=== PATIENT | male | born 1990 | race Caucasian/White ===

== ENCOUNTER 2020-11-21 02:42 | Emergency (ER) | payer MEDICAID ==
[~2020-11-21] VITALS: Ht 185.4 cm; Wt 81.6 kg
[2020-11-21 03:05] VITALS: BP_SYST 135
--- NOTE | 2020-11-21 03:05 | NUR ---
PT TO CHAIR 1 FOR EVALUATION
--- NOTE | 2020-11-21 03:15 | NUR ---
PT BIB FAMILY TO ED C/O USING HEROIN FOR 8 YEARS RELAPSED 2 WEEKS AGO. AND SOBER FOR 2 DAYS. VSS NO S/S OF ACUTE DISTRESS RESTING ON [employer] UP
[2020-11-21] MEDS ORDERED: NS 1000 ML IV.SOLN IV ONE (04:00)
[2020-11-21] MEDS ORDERED: PIPERACILLIN/TAZO 3.38 GM in D5W 50 ML IV ONE (04:00)
[2020-11-21] MEDS ORDERED: VANCOMYCIN HCL 1,000 MG in D5W 250 ML IV ONE (04:00)
[2020-11-21] MEDS ORDERED: VANCOMYCIN HCL 1000 MG/VIAL IV ONE (04:09)
[2020-11-21] MEDS ORDERED: PIPERACILLIN/TAZOBACTAM 3.375 GM/VIAL (ZOSYN) IV ONE (04:13)
[2020-11-21] MEDS ORDERED: ACETAMINOPHEN 500 MG TABLET PO ONE (04:15)
--- NOTE | 2020-11-21 04:21 | NUR ---
EKG 12 lead in progress
[2020-11-21 04:22] LABS: INR 1.1 (0.80-1.20); PROTHROMBIN TIME 11.3 SECS (9.5-12.5)
--- NOTE | 2020-11-21 04:24 | NUR ---
DR. LEE BEDSIDE FOR PT EVAL
[2020-11-21 04:26] LABS: LYMPHOCYTES # (AUTO) 0.6 K/uL (1.0-5.5); RED CELL DISTRIBUTION WIDTH 14.9 % (9.0-15.0)
[2020-11-21 04:31] LABS: BASOPHILS % (AUTO) 0.5 % (0.0-2.0); EOSINOPHILS # (AUTO) 0.7 K/uL (0.0-0.4); EOSINOPHILS % (AUTO) 8.6 % (0.0-4.0); HEMATOCRIT 42.4 % (36-54); HEMOGLOBIN 14.5 g/dL (14.0-18.0); LYMPHOCYTES % (AUTO) 7.6 % (20.5-51.5); MEAN CORPUSCULAR HEMOGLOBIN 28 pg (27-31); MEAN CORPUSCULAR HGB CONC 34 % (32-36); MEAN CORPUSCULAR VOLUME 82 fL (79.0-98.0); MONOCYTES # (AUTO) 0.4 K/uL (0.0-1.0); MONOCYTES % (AUTO) 4.6 % (1.7-9.3); NEUTROPHILS # (AUTO) 6.6 K/uL (1.8-7.7); NEUTROPHILS % (AUTO) 78.7 % (40.0-70.0); PLATELET COUNT (AUTO) 206 K/uL (130-430); RED BLOOD CELL COUNT(AUTO) 5.19 MIL/uL (4.2-6.2); WHITE BLOOD COUNT (AUTO) 8.4 K/uL (4.8-10.8)
[2020-11-21 04:37] LABS: POTASSIUM 3.7 mmol/L (3.5-5.1)
[2020-11-21 04:38] LABS: ALBUMIN 3.5 g/dL (3.4-4.8); CALCIUM 8.7 mg/dL (8.4-11.0); CREATININE 0.99 mg/dL (0.55-1.30); TOTAL BILIRUBIN 0.4 mg/dL (0.0-1.0)
[2020-11-21 04:47] LABS: BILIRUBIN,URINE NEGATIVE (NEGATIVE); BLOOD, URINE NEGATIVE (NEGATIVE); CLARITY/URINE CLEAR (CLEAR); COLOR,URINE YELLOW (YELLOW); GLUCOSE,URINE NEGATIVE (NEGATIVE); KETONES,URINE NEGATIVE (NEGATIVE); LEUKOCYTE ESTERASE ,URINE NEGATIVE (NEGATIVE); NITRITE, URINE NEGATIVE (NEGATIVE); PROTEIN URINE NEGATIVE (NEGATIVE); UROBILINOGEN,URINE 0.2 (0.2-1.0)
--- NOTE | 2020-11-21 04:52 | NUR ---
TEMP NOW 97.8, PT RESTING QUIETLY IN NO DISTRESS.
--- NOTE | 2020-11-21 04:52 | NUR ---
REPORT TO REYNALDO BANUELOS WHO WILL ASSUME CARE.
--- NOTE | 2020-11-21 05:42 | NUR ---
Assumed care of patient at change of shift. Introduced self to patient, positioned for comfort. Bed to low position sr up, continue to monitor. Patient resting quietly. No acute distress noted. Vital signs within normal range.
--- NOTE | 2020-11-21 06:42 | NUR ---
Patient resting quietly. No acute distress noted. Vital signs within normal range.
--- NOTE | 2020-11-21 07:30 | NUR ---
Patient resting in bed, denies any pain or SOB at this time. Respirations even and unlabored. No signs or symptoms of acute distress noted. All needs met.
[2020-11-21 07:50] LABS: BARBITURATE, URINE NEGATIVE (NEG <=200); BENZODIAZEPINE, URINE NEGATIVE (NEG <=150); COCAINE, URINE NEGATIVE (NEG <=150); METHAMPHETAMINES SCREEN,URINE POSITIVE (NEG <=500); URINE AMPHETAMINE POSITIVE (NEG <=500); URINE METHADONE NEGATIVE (NEG <=200)
[2020-11-21 07:51] LABS: CANNABINOID, URINE POSITIVE (NEG <=50); OPIATE, URINE POSITIVE (NEG <=100); PHENCYCLIDINE SCREEN,URINE NEGATIVE (NEG <=25); UR TRICYCLIC ANTIDEPRESSANTS NEGATIVE (NEG <=300); URINE OXYCODONE SCREEN NEGATIVE (NEG <=100); URINE PROPOXYPHENE SCREEN NEGATIVE (NEG <=300)
[2020-11-21 08:18] VITALS: BP_SYST 105
--- NOTE | 2020-11-21 08:19 | NUR ---
Patient given written and verbal discharge instructions and verbalizes understanding. ER Dr. Kelly discussed with patient the results and treatment provided. Patient in stable condition. ID arm band removed. IV catheter removed intact and dressing applied, no active bleeding. No Rx given. Patient educated on pain management and to follow up with PMD. Pain Scale 0/10. Opportunity for questions provided and answered. Medication side effect fact sheet provided.
== END 2020-11-21 08:16 | disposition home or self-care (01) ==
LOC: SED 02:42 → EDBD 02:42 → SED 08:16
DX: R50.9 Fever, unspecified (principal); F19.10 Other psychoactive substance abuse, uncomplicated; Z20.822 Contact with and (suspected) exposure to COVID-19
CPT/HCPCS: 36415; 71045; 80053; 80307; 81003; 83605; 84484; 85025; 85610; 87040; 87086; 87426; 93005; 96365; 96366; 96368; 99285; J2543; J3370

== ENCOUNTER 2021-02-13 11:04 | Emergency (ER) | payer MEDICAID, SELFPAY ==
[~2021-02-13] VITALS: Ht 185.4 cm; Wt 86.2 kg
[2021-02-13 11:04] VITALS: BP_SYST 138
--- NOTE | 2021-02-13 11:04 | NUR ---
BROUGHT BACK TO HALLWAY BED AND TRIAGED. REPORT GIVEN TO STACY
[2021-02-13 11:10] VITALS: BP_SYST 138
--- NOTE | 2021-02-13 11:10 | NUR ---
PT arrives from home w/ c/o of SOB after running out of his albuterol inhaler. Pt has a hx of asthma.
[2021-02-13] MEDS ORDERED: ALBUTEROL SULFATE 0.083% 2.5 MG/3 ML VIAL.NEB INH ONE ×2 (11:15→11:18)
[2021-02-13] MEDS ORDERED: predniSONE 20 MG TABLET PO ONE (11:15)
--- NOTE | 2021-02-13 11:15 | NUR ---
SHAQUILLE Uriarte at bedside examining patient.
--- NOTE | 2021-02-13 11:33 | NUR ---
FOOD OFFERED AND PT REFUSED.
--- NOTE | 2021-02-13 11:45 | NUR ---
PT ELOPED FROM THE ER. PT RECEIVED PREDNISONE AND RECEIVED HIS ALBUTEROL BREATHNG [place].
[2021-02-13] MEDS ORDERED: ALBMDI INH (11:48)
[2021-02-13] MEDS ORDERED: PRED20TA PO (11:48)
== END 2021-02-13 11:45 | disposition left against medical advice (07) ==
LOC: SED 11:04
DX: J45.901 Unspecified asthma with (acute) exacerbation (principal); Z79.899 Other long term (current) drug therapy
CPT/HCPCS: 94640; 99283; J7512; J7613